=== PATIENT | male | born 1980 | race African-American/Black ===

== ENCOUNTER 2023-06-12 14:16 | Emergency (ER) | payer OTHER ==
[~2023-06-12] VITALS: Ht 162.6 cm; Wt 97.0 kg
[~2023-06-12 14:16] MED LIST: AMLO10TA80 PO; BACL-141 PO; COR3 PO; CYCL5TAB PO; GABA-532 PO; GLIP5TAB12 PO; HYDR-4134 PO; HYDR25TA PO; METF-414 PO
[2023-06-12 14:36] VITALS: PULSE 99; RESP 18
[2023-06-12 14:38] VITALS: BP 163/94; TEMP 98.9; O2SAT 100
[2023-06-12] MEDS ORDERED: CEFTRIAXONE SODIUM 1 G/VIAL IM ONE (15:15)
== END 2023-06-12 16:24 | disposition home or self-care (01) ==
LOC: ER 14:39
DX: R78.81 Bacteremia (principal); I10 Essential (primary) hypertension; Z79.899 Other long term (current) drug therapy
CPT/HCPCS: 99283; 96372; J0696

== ENCOUNTER 2023-09-07 10:32 | Inpatient (IN) | payer OTHER ==
[~2023-09-07] VITALS: Ht 170.2 cm; Wt 99.9 kg
[~2023-09-07 10:32] MED LIST changes: -GLIP5TAB12 PO; +GLIP5TAB22 PO
[2023-09-07] MEDS ORDERED: SODIUM CHLORIDE 0.9% 1,000 ML IV ONE (11:15)
[2023-09-07 11:55] LABS: BASOPHILS % 0.3 % (0.0-2.0); EOSINOPHILS % 4.2 % (0.0-5.0); HEMATOCRIT. 36.9 % (42.0-52.0); HEMOGLOBIN. 12.2 g/dL (14.0-18.0); LYMPHOCYTES % 26.7 % (20.0-50.0); MEAN CORPUSCULAR HEMOGLOBIN 30.8 pg (28.0-32.0); MEAN CORPUSCULAR HGB CONC 33.2 g/dL (31.0-37.0); MEAN CORPUSCULAR VOLUME 92.8 fL (80.0-94.0); MEAN PLATELET VOLUME 10.1 fl (7.4-10.4); MONOCYTES % 5.6 % (2.0-8.0); NEUTROPHILS % 63.2 % (40.0-76.0); PLATELET 196 x1000/uL (130-400); RED BLOOD CELL COUNT 3.98 mill/uL (4.7-6.1); RED CELL DISTRIBUTION WIDTH 13.5 % (11.6-14.6); WHITE BLOOD COUNT 6.9 x1000/uL (4.5-11.0)
[2023-09-07 12:15] LABS: ALANINE AMINOTRANSFERASE 19 IU/L (10-49); ASPARTATE AMINOTRANSFERASE 14 IU/L (<34); BILIRUBIN TOTAL 0.3 mg/dL (0.1-1.0); CALCIUM 9.1 mg/dL (8.7-10.4); CARBON DIOXIDE 23 mEq/L (21-32); CHLORIDE 105 mEq/L (98-107); CREATININE 1.3 mg/dL (0.6-1.3); GLUCOSE 195 mg/dL (70-105); POTASSIUM 3.8 mEq/L (3.5-5.1); SODIUM 139 mEq/L (136-145); TROPONIN I HIGH SENSITIVITY 24 ng/L (3.0-53); UREA NITROGEN BLOOD 18 mg/dL (9-23)
[2023-09-07 12:23] LABS: ETHANOL BLOOD < 10 mg/dL (<10)
[2023-09-07 13:29] LABS: *AMPHETAMINES SCREEN URINE NEGATIVE (NEGATIVE); *BARBITURATES SCREEN URINE NEGATIVE (NEGATIVE); *BENZODIAZEPINES SCREEN URINE NEGATIVE (NEGATIVE); *COCAINE SCREEN URINE NEGATIVE (NEGATIVE); CANNABINOID URINE SCREEN NEGATIVE (NEGATIVE); ECSTASY MDMA SCREEN URINE NEGATIVE (NEGATIVE); METHADONE URINE SCREEN Neg (NEGATIVE); OPIATES URINE SCREEN NEGATIVE (NEGATIVE); PHENCYCLIDINE URINE SCREEN NEGATIVE (NEGATIVE)
[2023-09-07 13:50] LABS: CLARITY URINE CLEAR (CLEAR); COLOR URINE YELLOW (YELLOW); GLUCOSE URINE NEGATIVE (NEGATIVE); KETONES URINE NEGATIVE (NEGATIVE); LEUKOCYTE ESTERASE URINE 2+ (NEGATIVE); NITRITE URINE POSITIVE (NEGATIVE); OCCULT BLOOD URINE NEGATIVE (NEGATIVE); PROTEIN URINE 1+ (NEGATIVE); SPECIFIC GRAVITY URINE 1.021 (1.005-1.030)
[2023-09-07 14:29] LABS: BACTERIA URINE 3+; SQUAMOUS EPITHELIAL CELL URINE NONE SEEN /lpf (RARE/1+)
[2023-09-07 14:30] LABS: RBC URINE 0-2 /hpf (0-2)
[2023-09-07 17:30] VITALS: BP 138/86; PULSE 78; RESP 20; TEMP 97.9
[2023-09-07] MEDS ORDERED: TRAMADOL 50MG TABLET PO PRN (18:00)
[2023-09-07] MEDS ORDERED: DOCUSATE SODIUM 100MG CAPSULE PO PRN (18:00)
[2023-09-07] MEDS ORDERED: ACETAMINOPHEN 325MG TABLET PO PRN (18:00)
[2023-09-07] MEDS ORDERED: ONDANSETRON HCL 4MG/2ML INJ IV PRN (18:00)
[2023-09-07] MEDS ORDERED: HYDROCODONE/ACETAMINOPHEN 5/325MG TABLET PO PRN (18:00)
[2023-09-07] MEDS ORDERED: LISINOPRIL 5MG TABLET PO SCH (18:00)
[2023-09-07] MEDS ORDERED: CLONIDINE 0.1MG TABLET PO PRN (18:00)
[2023-09-07] MEDS ORDERED: GUAIFENESIN 200MG/10ML SUGAR FREE UDC PO PRN (18:00)
[2023-09-07] MEDS ORDERED: NALOXONE HCL 0.4MG/ML VIAL IV PRN (18:15)
[2023-09-07 18:30] VITALS: BP 138/86; PULSE 78; RESP 20; TEMP 97.8
[2023-09-07] MEDS: METOPROLOL TARTRATE 25MG TABLET PO SCH (18:56)
[2023-09-07] MEDS: AMLODIPINE 10MG TABLET PO SCH (18:56)
[2023-09-07] MEDS: ENOXAPARIN 40MG/0.4ML SYR SUBCUT SCH (18:57)
[2023-09-07 20:00] VITALS: BP 150/74; PULSE 85; RESP 20; TEMP 98.4
[2023-09-07] MEDS ORDERED: PIPERACILLIN/TAZO 3.375G/50ML 50 ML IV SCH (22:00)
[2023-09-08 00:30] VITALS: BP 122/69; PULSE 73; RESP 18; TEMP 98.8
[2023-09-08] MEDS: PIPERACILLIN/TAZO 3.375G/50ML 50 ML IV SCH ×4 (01:28→21:40)
[2023-09-08 04:00] VITALS: BP 135/73; PULSE 80; RESP 18; TEMP 98.6
[2023-09-08 07:04] LABS: HEMATOCRIT. 34.5 % (42.0-52.0); HEMOGLOBIN. 11.8 g/dL (14.0-18.0); MEAN CORPUSCULAR HEMOGLOBIN 31.5 pg (28.0-32.0); MEAN CORPUSCULAR HGB CONC 34.2 g/dL (31.0-37.0); MEAN CORPUSCULAR VOLUME 92.3 fL (80.0-94.0); MEAN PLATELET VOLUME 9.9 fl (7.4-10.4); PLATELET 177 x1000/uL (130-400); RED BLOOD CELL COUNT 3.74 mill/uL (4.7-6.1); RED CELL DISTRIBUTION WIDTH 13.2 % (11.6-14.6); WHITE BLOOD COUNT 5.4 x1000/uL (4.5-11.0)
[2023-09-08 07:36] LABS: ALANINE AMINOTRANSFERASE 15 IU/L (10-49); ALBUMIN 3.7 g/dL (3.2-4.8); ASPARTATE AMINOTRANSFERASE 14 IU/L (<34); BILIRUBIN TOTAL 0.4 mg/dL (0.1-1.0); CALCIUM 8.9 mg/dL (8.7-10.4); CARBON DIOXIDE 28 mEq/L (21-32); CHLORIDE 106 mEq/L (98-107); CHOLESTEROL 125 mg/dL (<200); CREATININE 1.4 mg/dL (0.6-1.3); GLUCOSE 69 mg/dL (70-105); HDL CHOLESTEROL 62 mg/dL (>55); LDL CHOLESTEROL 77 mg/dL (5-100); POTASSIUM 3.1 mEq/L (3.5-5.1); PROTEIN TOTAL 6.6 g/dL (6.0-8.3); SODIUM 143 mEq/L (136-145); TRIGLYCERIDE 52 mg/dL (0-150); UREA NITROGEN BLOOD 20 mg/dL (9-23)
[2023-09-08 07:52] LABS: DIFFERENTIAL COMMENT 1
[2023-09-08 08:00] VITALS: BP 128/66; PULSE 64; RESP 18; TEMP 97.4
[2023-09-08] MEDS: AMLODIPINE 10MG TABLET PO SCH (08:40)
[2023-09-08] MEDS: LISINOPRIL 20MG TABLET PO SCH (08:40)
[2023-09-08] MEDS: METOPROLOL TARTRATE 25MG TABLET PO SCH ×2 (08:41→17:05)
[2023-09-08] MEDS ORDERED: POTASSIUM CHLORIDE 20MEQ TABLET SR PO NR (10:00)
[2023-09-08] MEDS ORDERED: POLYVINYL ALCOHOL OPHTH DROPS 15ML BOTHEYE PRN (10:00)
[2023-09-08 12:00] VITALS: BP 141/80; PULSE 71; RESP 18; TEMP 97.9
[2023-09-08 16:00] VITALS: BP 146/76; PULSE 65; RESP 18; TEMP 98.1
[2023-09-08] MEDS: ENOXAPARIN 40MG/0.4ML SYR SUBCUT SCH (17:05)
[2023-09-08 19:18] LABS: PLATELET ESTIMATE NORMAL
[2023-09-08 20:00] VITALS: BP 134/80; PULSE 66; RESP 19; TEMP 99
[2023-09-08] MEDS: SODIUM CHLORIDE 0.9% 1,000 ML IV SCH (21:40)
[2023-09-09] VITALS (7 sets, daily range): BP systolic 127–157; BP diastolic 75–88; PULSE 62–71; RESP 16–20; TEMP 97.4–99.1; O2SAT 100
[2023-09-09] MEDS: SODIUM CHLORIDE 0.9% 1,000 ML IV SCH ×2 (05:03→09:07)
[2023-09-09] MEDS: PIPERACILLIN/TAZO 3.375G/50ML 50 ML IV SCH ×2 (05:03→14:34)
[2023-09-09 07:05] LABS: ALANINE AMINOTRANSFERASE 12 IU/L (10-49); ALBUMIN 3.8 g/dL (3.2-4.8); ASPARTATE AMINOTRANSFERASE 13 IU/L (<34); BILIRUBIN TOTAL 0.5 mg/dL (0.1-1.0); CARBON DIOXIDE 29 mEq/L (21-32); CHLORIDE 105 mEq/L (98-107); CREATININE 1.4 mg/dL (0.6-1.3); GLUCOSE 70 mg/dL (70-105); POTASSIUM 3.5 mEq/L (3.5-5.1); PROTEIN TOTAL 7.3 g/dL (6.0-8.3); SODIUM 142 mEq/L (136-145); UREA NITROGEN BLOOD 21 mg/dL (9-23)
[2023-09-09] MEDS: METOPROLOL TARTRATE 25MG TABLET PO SCH ×2 (09:00→18:01)
[2023-09-09] MEDS: AMLODIPINE 10MG TABLET PO SCH (09:06)
[2023-09-09] MEDS: LISINOPRIL 20MG TABLET PO SCH (09:06)
[2023-09-09] MEDS: ENOXAPARIN 40MG/0.4ML SYR SUBCUT SCH (18:01)
== END 2023-09-09 21:16 | disposition home or self-care (01) | DRG 872 ==
LOC: ER 10:32 → 5WST 13:27 → EDBEDREQTM 13:30 → EDBEDREQ 13:30 → 7WST 17:49
PROVIDERS: ADMIT Hospitalist; ATTEND Hospitalist
DX: A41.9 Sepsis, unspecified organism (principal); N39.0 Urinary tract infection, site not specified; G93.49 Other encephalopathy; I10 Essential (primary) hypertension; E11.9 Type 2 diabetes mellitus without complications; I16.0 Hypertensive urgency; Z82.49 Family history of ischemic heart disease and other diseases of the circulatory system; Z79.899 Other long term (current) drug therapy; Z79.4 Long term (current) use of insulin
CPT/HCPCS: 36415; 71045; 80053; 80061; 80305; 80320; 81003; 83605; 83735; 84484; 85025; 97162; 97167; 99285; J1650; J2405; J2543; J7030; G0480